=== PATIENT | female | born 1970 | race Caucasian/White ===

== ENCOUNTER 2019-03-08 08:35 | Outpatient (CLI) | payer OTHER ==
--- NOTE | 2019-03-08 10:50 | Mammography Report ---
Reason: SCREENING FOR BREAST CA Procedure Date: 03/08/2019 Accession Number: [id number] / [id number] Procedure: [facility] - Screening Mammo Dig Bilat CPT Code: FULL RESULT: EXAM: Screening Mammo Dig Bilat DATE: 03/08/2019 8:59 AM CLINICAL HISTORY: Screening examination TECHNIQUE: (B) - Bilateral CC and MLO views were obtained. COMPARISON: 11/06/2015, 03/09/2015 PARENCHYMAL PATTERN: (A) - The breasts demonstrate scattered fibroglandular densities bilaterally. FINDINGS: There are bilateral mostly well circumscribed rounded masses, each located in the upper outer quadrant, middle one third. IMPRESSION: Incomplete examination. BI-RADS category 0. RECOMMENDATION: Bilateral targeted breast ultrasound. BI-RADS CATEGORY: (0) - Incomplete Examination - need additional evaluation. STANDARD QUALIFYING STATEMENTS: 1. This examination was not reviewed with the aid of Computer-Aided Detection (CAD). 2. A negative or benign imaging report should not preclude biopsy if clinically suspicious findings are present. 3. Dense breasts may obscure an underlying neoplasm. 4. This examination was reviewed without the aid of 3D breast imaging (tomosynthesis).
== END 2019-03-08 08:36 | disposition home or self-care (01) ==
LOC: DI.N 08:35
PROVIDERS: ATTEND Physician Assistant Medical
DX: Z12.31 Encounter for screening mammogram for malignant neoplasm of breast (principal); R92.8 Other abnormal and inconclusive findings on diagnostic imaging of breast
CPT/HCPCS: 77067

== ENCOUNTER 2019-06-09 08:44 | Outpatient (CLI) | payer OTHER ==
--- NOTE | 2019-06-09 12:24 | Mammography Report ---
Reason: ABNORMAL MAMMOGRAM Procedure Date: 06/09/2019 Accession Number: [id number] / [id number] Procedure: [facility] - Diag Special Views Dig Bilat CPT Code: FULL RESULT: EXAM: Diag Special Views Dig Bilat DATE: 06/09/2019 9:42 AM CLINICAL HISTORY: Diagnostic examination. The patient is recalled from screening bilateral masses. TECHNIQUE: (B) - Bilateral bilateral spot CC, spot MLO and ML images are obtained. Bilateral focused breast ultrasound is performed. COMPARISON: 03/08/2019 through 08/03/2014. PARENCHYMAL PATTERN: (D) - The breast(s) demonstrate(s) heterogeneously dense fibroglandular parenchyma. FINDINGS: The previously noted left axillary tail mass has resolved in the interval and is no longer identified. Focused left breast ultrasound demonstrates multiple simple cysts the largest of which measures up to 2.3 cm x 0.9 cm x 2.1 cm and resides at the 2:00 position 5 cm from the nipple, typically benign. The previously noted right breast lateral mass persists mammographically. Focused right breast ultrasound is performed which demonstrates numerous simple appearing cysts the largest of which resides at the 10:00 position 6 cm from the nipple and measures 2.3 x 1.1 x 2.5 cm, typically benign. There are no suspicious masses, calcifications, or areas of distortion. IMPRESSION: Benign findings. BI-RADS category 2. RECOMMENDATION: (ANNUAL) - Recommend routine annual screening mammography. BI-RADS CATEGORY: (2) - Benign Findings. STANDARD QUALIFYING STATEMENTS: 1. This examination was not reviewed with the aid of Computer-Aided Detection (CAD). 2. A negative or benign imaging report should not preclude biopsy if clinically suspicious findings are present. 3. Dense breasts may obscure an underlying neoplasm. 4. This examination was reviewed with the aid of 3D breast imaging (tomosynthesis).
== END 2019-06-09 08:45 | disposition home or self-care (01) ==
LOC: DI 08:44
PROVIDERS: ATTEND Family Medicine
DX: R92.2 Inconclusive mammogram (principal)
CPT/HCPCS: 76642; 77062; 77066